=== PATIENT | female | born 1960 | race Hispanic/Latino ===

== ENCOUNTER 2024-07-19 12:44 | Emergency (ER) | payer MEDICARE ==
[~2024-07-19] VITALS: Ht 152.4 cm; Wt 87.1 kg
[2024-07-19] MEDS ORDERED: EPINEPHRINE HCL 1:1000 1ML 1 MG/ML AMP ONE (12:55)
[2024-07-19] MEDS ORDERED: SODIUM CHLORIDE 0.9% 250ML 250 ML ONE (12:55)
[2024-07-19] MEDS: KETOROLAC TROMETHAMINE 30 MG/ML VIAL IV STA (13:32)
[2024-07-19] MEDS: ONDANSETRON HCL INJ 2MG/ML 2ML 2 MG/ML VIAL IV STA (13:32)
[2024-07-19] MEDS: SODIUM CHLORIDE 0.9% 1000ML 1,000 ML IV ONE (13:32)
[2024-07-19 13:35] LABS: BASOPHILS % 0.6 % (0.0-1.0); EOSINOPHILS # (AUTO) 0.2 (0.0-0.4); EOSINOPHILS % 2.9 % (0.0-6.0); HEMATOCRIT 40.9 % (34.2-44.1); HEMOGLOBIN 13.7 g/dL (12.0-16.0); LYMPHOCYTES # (AUTO) 1.6 (1.0-3.2); LYMPHOCYTES % 23.5 % (18.0-39.1); MEAN CORPUSCULAR HEMOGLOBIN 30.6 pg (28-32); MEAN CORPUSCULAR HGB CONC 33.5 g/dL (31-35); MEAN CORPUSCULAR VOLUME 91.3 fL (81-99); MONOCYTES # (AUTO) 0.6 (0.2-0.8); MONOCYTES % 8.3 % (4.4-11.3); NEUTROPHILS # (AUTO) 4.3 (2.1-6.9); NEUTROPHILS % 64.5 % (38.7-80.0); PLATELET COUNT 305 x10e3/uL (140-360); RED BLOOD COUNT 4.48 x10e6/uL (3.6-5.1); WHITE BLOOD COUNT 6.63 x10e3/uL (4.8-10.8)
[2024-07-19 13:38] LABS: CLARITY,URINE CLEAR (CLEAR); COLOR,URINE STRAW (YELLOW)
[2024-07-19 13:39] LABS: BILIRUBIN,URINE NEGATIVE (NEGATIVE); GLUCOSE, URINE NEGATIVE (NEGATIVE); KETONES,URINE NEGATIVE (NEGATIVE); LEUKOCYTE ESTERASE ,URINE NEGATIVE (NEGATIVE); NITRITE,URINE NEGATIVE (NEGATIVE); PH,URINE 6 (5 - 7); PROTEIN,URINE DIPSTICK NEGATIVE (NEGATIVE); URINE UROBILINOGEN 0.2 mg/dL (0.2 - 1)
[2024-07-19 13:56] VITALS: PULSE 68; RESP 16; TEMP 97.8; O2SAT 99
[2024-07-19 13:56] LABS: EPITHELIAL CELLS,URINE FEW /LPF; WBC,URINE (MAN) 0-5 /HPF (0-5)
[2024-07-19 13:59] LABS: ALBUMIN 3.7 g/dL (3.5-5.0); ALBUMIN/GLOBULIN RATIO 1.1 (0.8-2.0); ANION GAP 13.8 mmol/L (8-16); BILIRUBIN,TOTAL 0.3 mg/dL (0.2-1.2); CALCIUM 8.4 mg/dL (8.4-10.2); CREATININE, SERUM 0.69 mg/dL (0.57-1.11); POTASSIUM 3.8 mmol/L (3.5-5.1)
== END 2024-07-19 15:22 | disposition home or self-care (01) ==
LOC: ER 13:21
DX: R10.9 Unspecified abdominal pain (principal); F41.9 Anxiety disorder, unspecified; F32.A Depression, unspecified
CPT/HCPCS: 36415; 74176; 80053; 81001; 83690; 85025; 99284; J0171; J1885; J2405; J7030; J7050

== ENCOUNTER 2024-12-25 16:18 | Emergency (ER) | payer MEDICARE ==
[~2024-12-25] VITALS: Ht 152.4 cm; Wt 87.1 kg
[2024-12-25 18:15] VITALS: TEMP 98.6
[2024-12-25] MEDS ORDERED: CYCLOBENZAPRINE5 MG PO (22:20)
[2024-12-25] MEDS ORDERED: NAPROSYN500 MG PO (22:20)
[2024-12-25 22:30] VITALS: PULSE 67; RESP 17
[2024-12-25 22:38] VITALS: BP 133/83; PULSE 67; RESP 17; O2SAT 97
== END 2024-12-25 22:35 | disposition home or self-care (01) ==
LOC: ER 20:11
DX: M25.511 Pain in right shoulder (principal); S46.211A Strain of muscle, fascia and tendon of other parts of biceps, right arm, initial encounter; X50.1XXA Overexertion from prolonged static or awkward postures, initial encounter; Y92.89 Other specified places as the place of occurrence of the external cause; F41.9 Anxiety disorder, unspecified; F32.A Depression, unspecified
CPT/HCPCS: 99284